=== PATIENT | male | born 1940 | race Caucasian/White ===

== ENCOUNTER → 2021-02-06 | Outpatient (CLI) | payer SELFPAY | END | disposition home or self-care (01) | LOC: OIH 09:56 | PROVIDERS: ATTEND Internal Medicine Cardiovascular Disease | DX: Z13.6 Encounter for screening for cardiovascular disorders (principal) | CPT/HCPCS: 75571 ==

== ENCOUNTER → 2021-02-19 | Outpatient (CLI) | payer MEDICARE ==
[~2021-02-19] VITALS: Ht 185.4 cm; Wt 74.8 kg
[~2021-02-19] MED LIST: REGADENOSON 0.4 MG/5 ML PF SYG IVP SCH
== END | disposition home or self-care (01) ==
LOC: SHCH 08:39
PROVIDERS: ATTEND Internal Medicine Cardiovascular Disease
DX: I25.89 Other forms of chronic ischemic heart disease (principal); I25.10 Atherosclerotic heart disease of native coronary artery without angina pectoris; I20.9 Angina pectoris, unspecified; I25.5 Ischemic cardiomyopathy
CPT/HCPCS: 78452; 93017; 96374; A9500 ×2

== ENCOUNTER → 2021-02-28 | Outpatient (CLI) | payer MEDICARE ==
[~2021-02-28] MED LIST changes: +ALBUTEROL SULFATE 0.083% 2.5 MG/3 ML INH IH ONE; -REGADENOSON 0.4 MG/5 ML PF SYG IVP SCH
== END | disposition home or self-care (01) ==
LOC: RESP 12:32 → EDUNIT# 13:00
PROVIDERS: ATTEND Internal Medicine Cardiovascular Disease
DX: R06.00 Dyspnea, unspecified (principal); J98.8 Other specified respiratory disorders
CPT/HCPCS: 94060; 94727; 94729

== ENCOUNTER → 2021-10-19 | Outpatient (CLI) | payer MEDICARE | END | disposition home or self-care (01) | LOC: RAH 12:43 | PROVIDERS: ATTEND Urology | DX: N13.39 Other hydronephrosis (principal) | CPT/HCPCS: 76770 ==

== ENCOUNTER → 2024-09-06 | Outpatient (CLI) | payer MEDICARE ==
[2024-09-06] MEDS: REGADENOSON 0.4 MG/5 ML PF SYG IVP SCH (10:36)
--- NOTE | 2024-09-06 17:44 | HMCSR ---
APPROVED REPORT TEST INDICATIONS CAD The imaging protocol used to acquire images was Rest Tc-99m/stress Tc-99m 1 day Consent: The procedure was explained and understood by the patient. Informerd consent was witnessed sybil Rogers RN First, low dose rest was performed then high dose stress. RESTING DATA: The resting ekg shows: NSR Rest SPECT myocardial perfusion imaging was performed in supine position minutes following the intra venous injection of 10 mCi of Tc-99 Sestamibi. Time of rest injection: Date: 09/06/2024 Time of rest imaging: Date: 09/06/2024 PHARMACOLOGIC STRESS: Pharmacologic stress test was performed by injecting regadenoson 0.4 mg IV push followed by the intra venous injection of 29 mCi of Tc-99 Sestamibi. Time of stress injection: Date: 09/06/2024 Time of stress imaging: Date: 09/06/2024 Gated Stress SPECT was performed 58 minutes after stress injection. The images were gated to evaluate regional wall motion and calculate left ventricular ejection fracti on. STRESS DETAILS Reason for Termination: Infusion complete Stress Symptoms: Dyspnea, Flushing Max HR Achieved: 75 bpm % of APMHR Achieved: 55 Max Blood Pressure: 172/81 mmHg Stress ECG: NSR Conclusion No ischemia No infarct LV ejection fraction 70% Diaphragm attenuation artifact Normal LV wall motion No increased lung uptake Normal LV size at rest and stress
== END | disposition home or self-care (01) ==
LOC: RAH 06:45
PROVIDERS: ATTEND Internal Medicine Cardiovascular Disease
DX: I25.10 Atherosclerotic heart disease of native coronary artery without angina pectoris (principal); R06.00 Dyspnea, unspecified
CPT/HCPCS: 78452; 93017; J2785; A9500 ×2